=== PATIENT | female | born 1980 | race Caucasian/White ===

== ENCOUNTER 2022-04-18 16:59 | Emergency (ER) | payer SELFPAY ==
[~2022-04-18] VITALS: Ht 165.1 cm; Wt 61.7 kg
[2022-04-18 17:24] VITALS: BP 144/97
--- NOTE | 2022-04-18 18:00 | NUR ---
BIB SELF C/O DIZZINESS , NAUSEA AFTER POSSIBLE BUG BITE AT LEFT ANKLE X 1 HOUR AGO. PMH: UTI 2 DAYS AGO & STILL TAKING ANTIBIOTIC
--- NOTE | 2022-04-18 19:14 | NUR ---
BLOOD SUGAR 86 AT THIS TIME.
[2022-04-18] MEDS ORDERED: DIPH25TA53 PO (19:59)
[2022-04-18] MEDS ORDERED: HYDR28CR38 TP (19:59)
[2022-04-18 20:14] VITALS: BP 136/86
--- NOTE | 2022-04-18 20:14 | NUR ---
Patient discharged with v/s stable. Written and verbal after care instructions given and explained for insect Bite. Patient alert, oriented and verbalized understanding of instructions. Ambulatory with steady gait. All questions addressed prior to discharge. ID band removed. Patient advised to follow up with PMD. Rx of Benadryl and Hydrocortisone cream given. Patient educated on indication of medication including possible reaction and side effects. Opportunity to ask questions provided and answered.
== END 2022-04-18 20:14 | disposition home or self-care (01) ==
LOC: MED 16:59
DX: S90.562A Insect bite (nonvenomous), left ankle, initial encounter (principal); R42 Dizziness and giddiness; W57.XXXA Bitten or stung by nonvenomous insect and other nonvenomous arthropods, initial encounter; Y93.89 Activity, other specified; Y92.89 Other specified places as the place of occurrence of the external cause; Y99.8 Other external cause status
CPT/HCPCS: 81002; 81025; 93005; 99283; Q0163